=== PATIENT | male | born 1960 | race Caucasian/White ===

== ENCOUNTER 2021-01-16 23:05 | Emergency (ER) | payer SELFPAY | END 2021-01-17 00:21 | disposition home or self-care (01) | LOC: ER1 23:05 | DX: S01.01XA Laceration without foreign body of scalp, initial encounter (principal); I10 Essential (primary) hypertension; W22.8XXA Striking against or struck by other objects, initial encounter; Y92.69 Other specified industrial and construction area as the place of occurrence of the external cause | CPT/HCPCS: 70450; 99283 ==